=== PATIENT | female | born 1970 | race Caucasian/White ===

== ENCOUNTER 2019-06-20 15:04 | Inpatient (IN) | payer BC ==
[~2019-06-20] VITALS: Ht 170.2 cm; Wt 132.3 kg
[2019-07-02 12:00] LABS: HEMOGLOBIN 10.5 g/dl (12.5-16.0); MEAN CELL VOLUME 80 fl (80.0-100.0); MEAN CORPUSCULAR HEMOGLOBIN 23 pg (27.0-31.0); MEAN CORPUSCULAR HGB CONC 28 g/dl (33.0-37.0); MEAN PLATELET VOLUME 10.5 fl (7.4-10.4); PLATELET COUNT 482 K/mm3 (130-400); RED BLOOD COUNT 4.62 M/mm3 (4.10-5.30)
[2019-07-02 12:20] LABS: ALBUMIN 4.2 gm/dL (3.5-5.0); BILIRUBIN,TOTAL 0.5 mg/dL (0.0-1.0); CALCIUM 9.7 mg/dL (8.4-10.2); CREATININE, serum 0.59 (0.52-1.25); POTASSIUM 3.8 mmol/L (3.4-5.0); TOTAL PROTEIN 7.6 gm/dL (6.4-8.2)
[2019-07-03] VITALS (11 sets, daily range): BP systolic 112–144; BP diastolic 57–82; PULSE 90–108; TEMP 97.4–98.6
[2019-07-03] MEDS ORDERED: HYZAAR 12.5 MG-1 TAB PO (09:31)
[2019-07-03] MEDS ORDERED: SINGULAIR 110 MG/TAB PO (09:32)
[2019-07-03] MEDS ORDERED: BYSTOLIC5 MG PO (09:32)
[2019-07-03] MEDS ORDERED: ASPIRIN E.C. 8181 MG PO (09:33)
[2019-07-03] MEDS ORDERED: PRILOSEC 20MG20 MG PO (09:33)
[2019-07-03] MEDS ORDERED: VITAMIND3 5000 PO (09:33)
[2019-07-03] MEDS ORDERED: PROBIOTIC FORMU1 CAP PO (09:34)
[2019-07-03] MEDS ORDERED: JUICE PLUS VITAMIN PO (09:35)
[2019-07-03] MEDS ORDERED: JUICE PLUS OMEGA PO (09:36)
[2019-07-03] MEDS ORDERED: 00186-0370-20 IH (09:36)
[2019-07-03] MEDS ORDERED: SPIRIVA RE2.5 MCG/Ac IH (09:37)
[2019-07-03] MEDS ORDERED: VENTOLIN0.09 MG IH (09:38)
[2019-07-03] MEDS ORDERED: XOPENEX HF0.045 MG/A IH (09:39)
--- NOTE | 2019-07-03 09:41 | NUR ---
TO AT 0835- CALL LIGHT IN REACH DR GARCIA INTO TALK WITH PATIENT AND FAMILY PRIOR TO PATIENT GOING TO SURGERY. TAKEN TO PACU TO HAVE A BLOCK PER KAIDEN TYSON AUTISM TEACHER
--- NOTE | 2019-07-03 15:30 | NUR ---
returned to room per bed from PACU, awake and alert but sleepy, IV infusing per dial-a-flow a 100ml/hr, O2 on at 2l/NC, 5 robotic sites closed with castillo set are CD&I, ANGEL drain without any drainage and gauze at site is CD&I, koch cath patent draining clear yellow urine, c/o some nausea type feeling and was medicated with zofran in PACU, head of bed elevate to 80 degrees per patient's request, at bedside, full assessment completed, see intervention for furthers info,
--- NOTE | 2019-07-03 16:00 | NUR ---
in bed with eyes closed, resp quiet and easy, family at bedside
--- NOTE | 2019-07-03 16:15 | NUR ---
is awake and states she just feels funy and her right foot feels tingly, has normal sensation and is able to move right foot, explained she had a block and it could be residual from the block, verbalizes understanding
--- NOTE | 2019-07-03 16:45 | NUR ---
dozing between checks
--- NOTE | 2019-07-03 17:17 | NUR ---
has some bloody drainage i ANGEL drain tubing but none in reservoir, koch with clear yellow urine
--- NOTE | 2019-07-03 18:15 | NUR ---
resting in bed without c/os
--- NOTE | 2019-07-03 19:02 | NUR ---
bedside shift report given to YUNG Trejo
--- NOTE | 2019-07-03 20:45 | NUR ---
Pt. laying in bed with family at bedside. Pt. is A&OX3, assessment complete. Abd. lap sites x5 well approximated. ANGEL to lt. side. serosang. draingage noted. Pt. reports pain at a 6 on pain scale, will give pain meds per orders. Pt. deies further needs, call light within reach.
[2019-07-04 05:10] VITALS: BP 95/54; PULSE 91; TEMP 98.3
[2019-07-04 07:18] LABS: MEAN CELL VOLUME 79 fl (80.0-100.0); MEAN CORPUSCULAR HGB CONC 29 g/dl (33.0-37.0); MEAN PLATELET VOLUME 10.1 fl (7.4-10.4); PLATELET COUNT 404 K/mm3 (130-400); RED BLOOD COUNT 3.58 M/mm3 (4.10-5.30)
[2019-07-04 07:31] LABS: CALCIUM 9.1 mg/dL (8.4-10.2); CREATININE, serum 1.15 (0.52-1.25); POTASSIUM 3.6 mmol/L (3.4-5.0)
[2019-07-04 07:50] VITALS: BP 123/62; PULSE 96; TEMP 97.9
[2019-07-04 07:50] LABS: HEMATOCRIT 28.2 % (37.0-47.0); HEMOGLOBIN 8.1 g/dl (12.5-16.0); MEAN CORPUSCULAR HEMOGLOBIN 23 pg (27.0-31.0)
--- NOTE | 2019-07-04 08:00 | NUR ---
SEE MORNING ASSESSMENT.
--- NOTE | 2019-07-04 08:29 | NUR ---
DR. FLOR CALLED AND NOTIFIED OF THE PATIENTS WBC OF 25.7. REPEAT CBC TONIGHT AT [address] GARCIA TO THIS NURSE.
[2019-07-04 08:43] LABS: BAND 13 % (0-10); LYMPHOCYTE 7 % (20.0-51.0); METAMYELOCYTE 4 % (0-0); MYELOCYTE 1 % (0-0); NEUTROPHILS 74 % (42.0-75.2); PLATELET ESTIMATE NORMAL (NORMAL)
--- NOTE | 2019-07-04 10:19 | NUR ---
Diagnostic Radiologist met with the patient to complete initial intake and discuss discharge planning. Patient lives in [facility] her , [place] (ph#[phone]) Patient sees Dr. Miller for primary care and obtains her medications from [facility] with no issue. Patient reports independence with ADLS and utilizes a CPAP at home. Patient states she has Advance Directives in place, which were set up at [facility] (ph#[phone]). Patient has no concerns at this time about returning home upon discharge.
--- NOTE | 2019-07-04 10:40 | NUR ---
PATIENTS VERA CATHETER DISCONTINUED PER ORDERS. 12 MLS OF STERILE WATER APIRATED FROM VERA BALLOON. BALLOON TIP INTACT. PATIENT TOLERATED WELL. PERICARE PROVIDED. PATIENT DENIES ANY NEEDS AT THIS TIME.
--- NOTE | 2019-07-04 10:55 | NUR ---
Initial visit; Patient thanked Ep Tech for looking in on her, offering prayer and God's blessings. Ep Tech will keep Danni in her prayers.
--- NOTE | 2019-07-04 12:00 | NUR ---
PATIENTS ANGEL DRAIN DRESSING SATURATED. DRESSING REMOVED AND REPLACED WITH GAUZE & TEGADERM DRESSING. PATIENT TOLERATED WELL.
[2019-07-04 12:07] VITALS: BP 115/62; PULSE 96; TEMP 97.4
--- NOTE | 2019-07-04 14:47 | NUR ---
PATIENT VOIDING WITHOUT DIFFICULT POST VERA REMOVAL. WILL CONTINUE TO MONITOR. PATIENT AMBULATING IN THE HALLS INDEPEDENTLY. CALL LIGHT WITHIN REACH. PATIENT DENIES ANY NEEDS AT THIS TIME.
[2019-07-04 16:38] VITALS: BP 101/56; PULSE 103; TEMP 98.7
[2019-07-04 18:01] LABS: MEAN CELL VOLUME 80 fl (80.0-100.0); MEAN CORPUSCULAR HGB CONC 28 g/dl (33.0-37.0); PLATELET COUNT 425 K/mm3 (130-400); RED BLOOD COUNT 3.91 M/mm3 (4.10-5.30); REDCELL DISTRIBUTION WIDTH-CV 17.2 % (11.5-14.5)
[2019-07-04 18:04] LABS: HEMATOCRIT 31.1 % (37.0-47.0); HEMOGLOBIN 8.8 g/dl (12.5-16.0); MEAN CORPUSCULAR HEMOGLOBIN 23 pg (27.0-31.0)
[2019-07-04 18:26] LABS: BAND 1 % (0-10); LYMPHOCYTE 18 % (20.0-51.0); NEUTROPHILS 75 % (42.0-75.2)
--- NOTE | 2019-07-04 18:26 | NUR ---
DR. GARCIA CALLED AND NOTIFIED OF REPEAT WBC OF 24. ORDER FOR REPEAT CBC IN AM TORB DR. GARCIA TO THIS NURSE.
[2019-07-04 18:27] LABS: ANISOCYTOSIS 1+; HYPOCHROMIA 1+; MICROCYTOSIS 1+; PLATELET ESTIMATE INCREASED (NORMAL)
[2019-07-04 18:28] LABS: POIKILOCYTOSIS 1+; STOMATOCYTE 1+; TEAR DROP CELLS 1+
--- NOTE | 2019-07-04 19:12 | NUR ---
REPORT GIVEN TO YUNG US.
[2019-07-04 19:31] VITALS: BP 105/62; PULSE 96; TEMP 97.6
[2019-07-05 00:25] VITALS: BP 114/62; PULSE 94; TEMP 97.9
--- NOTE | 2019-07-05 02:25 | NUR ---
PATIENT DOING WELL THROUGHOUT THE NIGHT. X5 LAP SITES ARE CDI AND OPEN TO AIR. ANGEL DRAIN DRESSING IS CDI. DRAINING BLOOD TINGED FLUID. PATIENT IS INDEPENDENT IN ROOM AND HAS BEEN UP WALKING IN HALLWAY. C/O GAS PAIN IN UPPER ABD AND HEADACHE. SEE ASSESSMENT. NO FURTHER NEEDS AT THIS TIME.
[2019-07-05 04:46] VITALS: BP 11/54; PULSE 87; TEMP 97.5
--- NOTE | 2019-07-05 06:40 | NUR ---
awake resting in bed with CPAP on, bedside shift report received from YUNG Carter
[2019-07-05 07:16] LABS: MEAN CELL VOLUME 80 fl (80.0-100.0); MEAN CORPUSCULAR HGB CONC 29 g/dl (33.0-37.0); MEAN PLATELET VOLUME 10.2 fl (7.4-10.4); PLATELET COUNT 378 K/mm3 (130-400); RED BLOOD COUNT 3.41 M/mm3 (4.10-5.30); REDCELL DISTRIBUTION WIDTH-CV 17.2 % (11.5-14.5)
[2019-07-05 07:20] LABS: HEMATOCRIT 27.3 % (37.0-47.0); HEMOGLOBIN 7.8 g/dl (12.5-16.0); MEAN CORPUSCULAR HEMOGLOBIN 23 pg (27.0-31.0)
[2019-07-05 07:27] VITALS: BP 124/64; PULSE 78; TEMP 98.4
[2019-07-05 07:58] LABS: BAND 5 % (0-10); EOSINOPHIL 3 % (0-4); LYMPHOCYTE 18 % (20.0-51.0); METAMYELOCYTE 1 % (0-0); NEUTROPHILS 69 % (42.0-75.2)
[2019-07-05 07:59] LABS: HYPOCHROMIA 2+; OVALOCYTES 2+; PLATELET ESTIMATE NORMAL (NORMAL)
--- NOTE | 2019-07-05 08:00 | NUR ---
sitting up in bed and has had breakfast and tolerated well, visiting with family, student RN assisting with care
--- NOTE | 2019-07-05 08:45 | NUR ---
ambulating in schwarz independently with family at side
--- NOTE | 2019-07-05 09:30 | NUR ---
ANGEL drain to abdomen removed. Patient tolerated well. 2x2 gauze applied to incision with tegaderm holding gauze in place. Dressing is CDI.
--- NOTE | 2019-07-05 10:25 | NUR ---
Dr Gordon in to see patient, will plan discharge later today, vascular lab notified of need for doppler study
--- NOTE | 2019-07-05 10:46 | NUR ---
Follow-up visit; Patient thanked Manager Of Business for looking in on her prior to her discharge. Manager Of Business wished Danni well and God's blessings.
--- NOTE | 2019-07-05 11:15 | NUR ---
full assessment completed, reviewed assessment done by student and in agreement with that assessment
--- NOTE | 2019-07-05 12:19 | NUR ---
resting in bed, encouraged to use incentive spirometer since T is 99.4 and verbalizes understanding, state she is just tired, encourage to try and take a nap after lunch
[2019-07-05 12:22] VITALS: BP 115/62; PULSE 101; TEMP 99.4
--- NOTE | 2019-07-05 13:42 | NUR ---
Patient sitting in recliner visiting with family. Gazue dressing with tegaderm to abdomen remains CDI. Patient voices no pain at this time, states she has slight abdomen gas pain. Patient voices no other needs or concerns at this time. Reported off to YUNG Frankel.
--- NOTE | 2019-07-05 15:45 | NUR ---
discharge instructions given to patient and her mother, verbalizes understanding
--- NOTE | 2019-07-05 16:00 | NUR ---
discharged per WC
== END 2019-07-05 16:00 | disposition home or self-care (01) | DRG 661 ==
LOC: SURG 07-03 08:18 → INPTSU 07-03 08:18 → SURG 07-03 10:00
PROVIDERS: Physician Assistant Surgical; ADMIT Urology
PROC: 8E0W4CZ Robotic Assisted Procedure of Trunk Region, Percutaneous Endoscopic Approach (ICD-10-PCS; 2019-07-03)
PROC: 0TB14ZZ Excision of Left Kidney, Percutaneous Endoscopic Approach (ICD-10-PCS; principal; 2019-07-03 10:00)
DX: N28.89 Other specified disorders of kidney and ureter (principal); J45.909 Unspecified asthma, uncomplicated; I10 Essential (primary) hypertension; G47.33 Obstructive sleep apnea (adult) (pediatric); K21.9 Gastro-esophageal reflux disease without esophagitis; Z85.3 Personal history of malignant neoplasm of breast; Z92.21 Personal history of antineoplastic chemotherapy; Z92.3 Personal history of irradiation; Z90.13 Acquired absence of bilateral breasts and nipples; Z98.51 Tubal ligation status
CPT/HCPCS: A4314; A9284; J0690; J1100; J2250; J2405; J2704; J2795; J3010; J7120